=== PATIENT | male | born 1945 | race Caucasian/White ===

== ENCOUNTER 2018-10-10 07:53 | Day surgery (SDC) | payer MEDICARE, OTHER ==
[~2018-10-10 07:53] MED LIST: Buffered Lidocaine 1% SYRIN* 1 ML/SYRINGE INTRADERM ONE; Lactated Ringers 1000 ML Bag* 1,000 ML IV SCH
[2018-10-10] MEDS ORDERED: Buffered Lidocaine 1% SYRIN* 1 ML/SYRINGE INTRADERM ONE (08:11)
[2018-10-10] MEDS ORDERED: ceFAZolin 2 GM PREMIX in ORs 2 GM/50 ML BAG IVPB ONE (08:11)
[2018-10-10 08:35] LABS: ABS Basophils 0 10^3/ul (0-0.2); ABS Eosinophils 0.1 10^3/ul (0-0.6); ABS Lymphocytes 1.7 10^3/ul (1.0-4.8); ABS Monocytes 0.6 10^3/ul (0-0.8); ABS Neutrophils 3.7 10^3/ul (1.5-7.7); ABS Nucleated RBC 0 10^3/ul; Eosinophil % 1.4 %; Hematocrit 44 % (42-52); Hemoglobin 15.2 g/dl (14.0-18.0); Lymphocyte % 28.2 %; Mean Corpuscular HGB Conc 34 g/dl (31-36); Mean Corpuscular Hemoglobin 31 pg (27-31); Mean Corpuscular Volume 90 fL (80-94); Mean Platelet Volume 7.1 fL (7.4-10.4); Nucleated Red Blood Cells % 0.2; Platelet Count 233 10^3/ul (150-450); Red Blood Count 4.96 10^6/ul (4.00-5.40); Red Cell Distribution Width 14 % (10.5-15); White Blood Count 6.1 10^3/ul (3.5-10.8)
[2018-10-10 08:50] LABS: Activated Partial Thrombo Time 28.9 seconds (26.0-36.3); INR 0.98 (0.77-1.02)
[2018-10-10] MEDS ORDERED: Bupivacaine 0.25% W/EPI* 10 ML SDV ONE (10:26)
[2018-10-10] MEDS ORDERED: Lidocaine 2% JELLY* 20 ML (for OR use) ONE (10:26)
[2018-10-10] MEDS ORDERED: Midazolam* 1 MG/ML 2 ML VIAL (2 MG) ONE ×2 (10:43→10:47)
[2018-10-10] MEDS ORDERED: Propofol* 10 MG/ML 20 ML BTL ONE (11:00)
[2018-10-10] MEDS ORDERED: Chloroprocaine 2%* 20 ML VIAL ONE (11:00)
[2018-10-10] MEDS ORDERED: Naloxone* 0.4 MG/ML 1 ML VIAL IV PRN (11:20)
[2018-10-10] MEDS ORDERED: Ketorolac INJ* 30 MG/ML 1 ML VIAL ONE (11:58)
[2018-10-10] MEDS ORDERED: oxyCODONE/Acetamin 5/325 MG* TAB ONE (12:47)
--- NOTE | 2018-10-10 13:10 | OP ---
CC: Tommy Mosqueda MD; Dr. Jimenez OPERATIVE REPORT: DATE OF OPERATION: 10/10/18 DATE OF : 47 SURGEON: Tommy Mosqueda MD TUBULAR SPLITTING MACHINE TENDER: None. ANESTHESIOLOGIST: Dr. Cantor ANESTHESIA: Spinal anesthetic, local infiltration by the surgeon. PRE-OP DIAGNOSIS: Internal and external hemorrhoids. POST-OP DIAGNOSIS: Internal and external hemorrhoids. OPERATIVE PROCEDURE: Internal and external hemorrhoidectomy. DESCRIPTION OF PROCEDURE: The patient was supine on the operating room table. After adequate spinal anesthetic, compression stocking, Asia Hugger warmer, and intervenous sedation, he was put in the pro ne Jackknife position with the buttocks taped apart. The area was prepped with Betadine drape in abner rile fashion. Anal retractors were used to examine the area. There is a large internal hemorrhoidal cluster at approximately the 4 o'clock position. This has an external skin tag as well. The skin t ag was excised and the large cluster mobilized down to its base and then it was suture ligated with 2 -0 Vicryl and amputated and sent in formalin for pathologic evaluation. Then, on the left side, at a pproximately the 9 o'clock position, is a large external component and a medium sized internal compon ent. The external component is dissected up and this is then dissected down to the base of the inter nal component which is again suture ligated with 2-0 Vicryl and amputated. Hemostasis was good. Ther e were no other hemorrhoids that required any treatment. Local anesthetic was administered. A gauze dressing was placed. He tolerated the procedure well, was brought to Recovery in good condition. No complications. No drains. Pathologic specimens are hemorrhoids. Sponge and instruments counts cor rect. Estimated blood loss is 30 mL. [id number]/[facility] #: [id number]
[2018-10-10 13:20] VITALS: BP 143/78
== END 2018-10-10 13:40 | disposition home or self-care (01) ==
LOC: OR 07:53
PROVIDERS: ATTEND Surgery
DX: K64.2 Third degree hemorrhoids (principal); Z87.891 Personal history of nicotine dependence; I10 Essential (primary) hypertension; G47.33 Obstructive sleep apnea (adult) (pediatric); N40.0 Benign prostatic hyperplasia without lower urinary tract symptoms; E78.00 Pure hypercholesterolemia, unspecified
CPT/HCPCS: 36415; 85025; 85610; 85730; 88304; A9270-GY; J0690; J1885; J2250; J2400; J2704